=== PATIENT | male | born 2000 | race Two or more races ===

== ENCOUNTER 2019-12-17 12:38 | Emergency (ER) | payer MEDICAID, OTHER ==
[~2019-12-17] VITALS: Ht 177.8 cm; Wt 86.2 kg
[2019-12-17 13:14] VITALS: BP 132/85
== END 2019-12-17 15:08 | disposition home or self-care (01) ==
LOC: ER 12:38
DX: G44.209 Tension-type headache, unspecified, not intractable (principal)
CPT/HCPCS: 70450